=== PATIENT | male | born 1960 | race Caucasian/White ===

== ENCOUNTER → 2025-02-17 | Outpatient (CLI) | payer SELFPAY ==
--- NOTE | 2025-02-17 12:46 | RAD_ITS ---
PROCEDURE: THORACIC SPINE 2 VIEWS 02/17/2025 REASON FOR EXAM: PAIN IN THORACIC SPINE TECHNIQUE: Procedure Code: [id number] Modality: DX Procedure: THORACIC SPINE 2 VIEWS FINDINGS: No evidence acute fracture or dislocation. Vertebral body heights are maintained. [id number] discogenic degenerative changes of the visualized spine. Normal alignment. RAD/Thoracic Spine 2 Views IMPRESSION: Spondylosis. Reading Location: [id number]
--- NOTE | 2025-02-17 12:46 | RAD_ITS ---
PROCEDURE: CERV SPINE OBL/FLEX/EXT COMP 02/17/2025 REASON FOR EXAM: CERVICALGIA TECHNIQUE: Procedure Code: [id number] Modality: DX Procedure: CERV SPINE OBL/FLEX/EXT COMP COMPARISON: None. FINDINGS: There are no compression fractures or subluxations. There is loss of the normal cervical lordosis. There is degenerative disc disease, C3-4 through C6-7 with narrowing of the intervertebral disc spaces and marginal osteophytes. There is multilevel facet arthropathy. There is degenerative grade 1 anterolisthesis of C3 on C4 and C7 on T1, which increase in flexion. The paravertebral soft tissues are normal. RAD/Cerv Spine Obl/Flex/Ext Comp IMPRESSION: 1. Multilevel degenerative disc disease as described. 2. Degenerative anterolisthesis C3 on C4 and C7 on T1 which demonstrate instab ility with flexion. Reading Location: [place] [id number]
== END | disposition home or self-care (01) ==
PROVIDERS: PCP Family Medicine; Referring Provider Chiropractor Orthopedic; Visit Provider Chiropractor Orthopedic
DX: M99.01 Segmental and somatic dysfunction of cervical region (principal); M99.02 Segmental and somatic dysfunction of thoracic region; M54.2 Cervicalgia; M54.6 Pain in thoracic spine
CPT/HCPCS: 72052; 72070